=== PATIENT | female | born 1985 | race American Indian/Alaskan Native ===

== ENCOUNTER 2016-04-14 11:00 | Emergency (ER) | payer MEDICAID ==
[2016-04-14 12:04] VITALS: BP 122/78
--- NOTE | 2016-04-14 12:53 | Emergency Department Report ---
Chief Complaint: Abdominal Pain Stated Complaint: BODY PAIN/VOMITING Time Seen by Provider: 04/14/16 12:43 - HPI History of Present Illness: 30-year-old female presents today with body aches, abdominal pain, vaginal bleeding/discharge and headaches 2-3 weeks. Patient states that she was diagnosed with HIV on February 18 with a viral load of 1014. Patient has not been on any pain medication for symptomatic relief. She has an appointment for her with infectious diseases on June 04. - ROS Review of Systems: Per HPI - Exam Vital Signs: Vital Signs 04/14/16 11:55 Temperature 98.2 F Pulse Rate 90 Respiratory 20 Rate Blood Pressure 122/78 O2 Sat by Pulse 98 Oximetry Physical Exam: General: 30-year-old female in no acute distress. Well-developed, well- nourished. CV: Regular rate and rhythm. Lungs: Clear to auscultation bilaterally. Abdomen: Tenderness to palpation of lower abdomen. No guarding or rebound tenderness. Normal bowel sounds. MSE screening note: Focused history and physical exam performed. Due to findings the following was ordered: ED Disposition for MSE Condition: Stable Instructions: Abdominal Pain (ED)
[2016-04-14 16:23] LABS: Hematocrit 40.7 % (30.3-42.9); Hemoglobin 13.3 gm/dl (10.1-14.3); Mean Corpuscular HGB Conc 33 % (30-34); Mean Corpuscular Hemoglobin 32 pg (28-32); Mean Corpuscular Volume 97 fl (79-97); Platelet Count 208 K/mm3 (140-440); Red Blood Count 4.21 M/mm3 (3.65-5.03); Red Cell Distribution Width 14.4 % (13.2-15.2); White Blood Count 8.2 K/mm3 (4.5-11.0)
[2016-04-14 16:39] LABS: Amylase 29 units/L (27-131); Anion Gap 18 mmol/L; Blood Urea Nitrogen 8 mg/dL (7-17); Calcium 9.3 mg/dL (8.4-10.2); Carbon Dioxide 25 mmol/L (22-30); Chloride 101.2 mmol/L (98-107); Glucose 101 mg/dL (65-100); Lipase 20 units/L (13-60); Potassium 3.7 mmol/L (3.6-5.0); Sodium 140 mmol/L (137-145)
== END 2016-04-14 21:06 | disposition left against medical advice (07) ==
LOC: ED 11:00
DX: R10.9 Unspecified abdominal pain (principal); N93.9 Abnormal uterine and vaginal bleeding, unspecified; Z53.21 Procedure and treatment not carried out due to patient leaving prior to being seen by health care provider
CPT/HCPCS: 36415; 80048; 82150; 83690; 85025

== ENCOUNTER 2020-07-22 10:16 | Emergency (ER) | payer MEDICAID ==
[2020-07-22 12:03] LABS: HCG Qualitative,Urine Negative (Negative)
[2020-07-22 12:08] LABS: Bilirubin,Urine NEG (Negative); Blood,Urine NEG (Negative); Color,Urine Yellow (Yellow); Mucus,Urine FEW /HPF
[2020-07-22 12:23] LABS: Basophils % (Auto) 0.1 % (0.0-1.8); Eosinophils # (Auto) 0.1 K/mm3 (0.0-0.4); Hematocrit 42.9 % (30.3-42.9); Hemoglobin 14.3 gm/dl (10.1-14.3); Lymphocytes # (Auto) 0.5 K/mm3 (1.2-5.4); Lymphocytes % (Auto) 6.1 % (13.4-35.0); Mean Corpuscular HGB Conc 33 % (30-34); Mean Corpuscular Volume 95 fl (79-97); Monocytes # (Auto) 0.4 K/mm3 (0.0-0.8); Monocytes % (Auto) 4.5 % (0.0-7.3); Platelet Count 245 K/mm3 (140-440); Red Blood Count 4.54 M/mm3 (3.65-5.03); Red Cell Distribution Width 15.3 % (13.2-15.2)
[2020-07-22 12:45] LABS: Alanine Aminotransferase 15 units/L (7-56); Albumin 4.6 g/dL (3.9-5); BUN/Creatinine Ratio 10; Blood Urea Nitrogen 9 mg/dL (7-17); Calcium 9.5 mg/dL (8.4-10.2); Hemolysis Index 3
[2020-07-22 17:21] VITALS: BP 124/74
[2020-07-22] MEDS ORDERED: ONDANSETRON 4 MG/2 ML INJ IV ONE (17:27)
[2020-07-22] MEDS ORDERED: SODIUM CHLORIDE 0.9% 1000 ML 1,000 ML IV ONE (17:27)
== END 2020-07-22 19:53 | disposition home or self-care (01) ==
LOC: ED 10:16
DX: K52.9 Noninfective gastroenteritis and colitis, unspecified (principal); E86.0 Dehydration; R11.2 Nausea with vomiting, unspecified; R10.13 Epigastric pain; F17.200 Nicotine dependence, unspecified, uncomplicated; Z98.51 Tubal ligation status; Z79.1 Long term (current) use of non-steroidal anti-inflammatories (NSAID); Z79.2 Long term (current) use of antibiotics; Z79.899 Other long term (current) drug therapy
CPT/HCPCS: 36415; 80053; 81001; 81025; 83690; 85025; 87086; 96361; 96374; 99284; J2405; J7030